=== PATIENT | male | born 1955 | race Caucasian/White ===

== ENCOUNTER 2023-04-24 05:37 | Observation (INO) | payer MEDICARE ==
[2023-04-19 10:20] VITALS: BMI 29.7
[2023-04-19 10:56] LABS: Bilirubin Neg (Negative); Blood, Urine Negative (Negative); Clarity Clear (Clear); Glucose, Urine (Dipstick) Normal (Negative); Ketone, Urine Negative (Negative); Leukocyte 25 (Negative); Nitrite Negative (Negative); Protein, Urine (Dipstick) Negative (Neg-Trace); Urobilinogen Normal mg/dL (Less than 2)
[2023-04-19 11:02] LABS: #Basophils 0.1 10x3/uL (0.0-0.2); #Eosinphils 0.3 10x3/uL (0.0-0.5); #Monocytes 0.7 10x3/uL (0.0-1.1); %Basophils 0.8 % (0.0-2.0); %Eosinophils 3.3 % (0.0-6.0); %Lymphocytes 23.1 % (18.0-47.0); %Monocytes 8.7 % (0.0-10.0); Hemoglobin 14.1 g/dL (13.5-17.5); Mean Corpuscular HGB CONC 33.7 g/dL (32.0-36.0); Mean Corpuscular Hemoglobin 31.8 pg (27.0-33.0); Mean Corpuscular Volume 94.4 fl (81.2-95.1); Mean Platelet Volume 10.8 fl (7.4-10.4); Platelet Count 322 10x3/uL (150-450); RBC Distribution Width 12.4 % (11.5-14.5); Red Blood Cell (RBC) Count 4.44 10x6/uL (4.32-5.72); White Blood Cell (WBC) Count 7.8 10x3/uL (3.5-10.5)
[2023-04-19 11:12] LABS: Prothrombin Time 10.3 sec (9.5-12.1)
[2023-04-19 11:22] LABS: Anion Gap 15 mmol/L (10-20); BUN (Urea Nitrogen) 15 mg/dL (8.4-25.7); Calc. Creatinine Clearance 0 mL/min (70-130); Calcium 9.3 mg/dL (7.8-10.44); Carbon Dioxide 22 mmol/L (23-31); Chloride 108 mmol/L (98-107); Estimated GFR 90; Glucose 84 mg/dL (80-115); Potassium 4.8 mmol/L (3.5-5.1); Sodium 140 mmol/L (136-145)
[2023-04-24] MEDS ORDERED: Bupivacaine PF 0.5% 30 ML VIAL ONE ×2 (06:27→06:43)
[2023-04-24] MEDS ORDERED: Tranexamic Acid 1,000 MG/10 ML VIAL ONE (06:35)
[2023-04-24] MEDS ORDERED: Vancomycin (BATCH) 1.5 GRAM/300 ML BAG ONE (06:35)
[2023-04-24] MEDS ORDERED: Sodium Chloride 0.9% 100 ML ONE ×2 (06:35→06:54)
[2023-04-24] MEDS ORDERED: Midazolam HCl 2 mg/2 ml Vial ONE (06:43)
[2023-04-24] MEDS ORDERED: EPINEPHrine 1 MG/ML AMP ONE (06:43)
[2023-04-24] MEDS ORDERED: Lidocaine 1% (PF) 30 ML VIAL ONE (06:43)
[2023-04-24] MEDS ORDERED: CEFAZOLIN 2 GM VIAL ONE (06:54)
[2023-04-24] MEDS ORDERED: HYDROcodone/Acetaminophen 10/325 mg Tablet PO PRN ×3 (07:18→08:15)
[2023-04-24] MEDS ORDERED: traMADol HCl 50 MG TAB PO PRN ×3 (07:18→08:15)
[2023-04-24] MEDS ORDERED: Zolpidem Tartrate 5 MG TAB PO PRN ×2 (07:18→08:15)
[2023-04-24] MEDS ORDERED: diphenhydrAMINE 25 MG CAP PO PRN (07:18)
[2023-04-24] MEDS ORDERED: fentaNYL 50 mcg/mL 1 mL Vial SLOW IVP PRN ×2 (07:18→08:10)
[2023-04-24] MEDS ORDERED: Ondansetron PF 4 MG/2 ML Vial IVP PRN ×2 (07:18→08:15)
[2023-04-24] MEDS ORDERED: Promethazine HCl 25 MG/ML VIAL IM PRN ×2 (07:18→08:15)
[2023-04-24] MEDS ORDERED: Acetaminophen 325 MG TAB PO PRN (07:18)
[2023-04-24] MEDS ORDERED: GLYCOPYRROLATE/PF 0.2 MG/ML VIAL ONE (07:19)
[2023-04-24] MEDS ORDERED: Lidocaine 1% PF 5 ML VIAL ONE (07:19)
[2023-04-24] MEDS ORDERED: Dexamethasone 20 MG/5 ML VIAL ONE (07:19)
[2023-04-24] MEDS ORDERED: Ondansetron PF 4 MG/2 ML Vial ONE ×2 (07:19)
[2023-04-24] MEDS ORDERED: PROPOFOL 200 MG/20 ML VIAL ONE (07:19)
[2023-04-24] MEDS ORDERED: Tranexamic Acid 1,000 MG in Sodium Chloride 0.9% 100 ML IVPB SCH (07:30)
[2023-04-24] MEDS ORDERED: fentaNYL 50 mcg/mL 1 mL Vial ONE ×4 (07:35→11:46)
[2023-04-24] MEDS ORDERED: HYDROmorphone 2 MG/ML VIAL ONE (07:48)
[2023-04-24] MEDS ORDERED: Ropivacaine 0.2% 550 ML 550 ML NERVE BLCK SCH (08:15)
[2023-04-24] MEDS ORDERED: Meperidine HCl/PF 25 MG/ML VIAL ONE (09:17)
[2023-04-24] MEDS ORDERED: Non-Formulary Medication 1 EACH PO PRN (13:14)
[2023-04-24] MEDS ORDERED: Ondansetron HCl/PF 4 MG/2 ML Vial IVP PRN (13:15)
[2023-04-24] MEDS ORDERED: Promethazine HCl 25 MG/ML VIAL IM/IV PRN (13:15)
[2023-04-24] MEDS ORDERED: Meperidine HCl/PF 25 MG/ML VIAL IV PRN (13:15)
[2023-04-24] MEDS ORDERED: Ketorolac Tromethamine 30 MG/ML VIAL IVP SCH (14:00)
[2023-04-24] MEDS: Aspirin 81 mg Enteric Coated Tablet PO SCH ×2 (14:31→20:43)
[2023-04-24] MEDS: Amlodipine 5 MG TAB PO SCH (14:31)
[2023-04-24] MEDS: Clopidogrel Bisulfate 75 MG TAB PO SCH (14:31)
[2023-04-24] MEDS: Sodium Chloride 0.9% 1,000 ML IV SCH ×2 (14:31→15:24)
[2023-04-24] MEDS: Ferrous Gluconate 324 MG TAB PO SCH ×2 (14:31→20:43)
[2023-04-24] MEDS: Multivitamin W/ Minerals 1 TAB PO SCH (14:32)
[2023-04-24] MEDS: Senokot S 8.6-50 MG TAB PO SCH ×2 (14:32→20:43)
[2023-04-24] MEDS: Ketorolac Tromethamine 30 MG/ML VIAL IVP SCH ×3 (14:32→23:22)
[2023-04-24] MEDS: Losartan 25 MG TAB PO SCH (14:32)
[2023-04-24] MEDS: HYDROcodone/Acetaminophen 10/325 mg Tablet PO PRN (15:24)
[2023-04-24] MEDS: CEFAZOLIN 2 GM in Sodium Chloride 0.9% 100 ML IVPB SCH ×2 (15:24→23:23)
[2023-04-24] MEDS ORDERED: Vancomycin 1.5 GRAM/300 ML BAG 1.5 GM in Premix Bag 1 BAG IVPB SCH (18:00)
[2023-04-24] MEDS ORDERED: Atorvastatin Calcium 40 MG TAB PO SCH (21:00)
[2023-04-24] MEDS ORDERED: Tamsulosin HCl 0.4 MG CAP PO SCH (21:00)
[2023-04-25] MEDS: Sodium Chloride 0.9% 1,000 ML IV SCH (03:15)
[2023-04-25] MEDS: Ketorolac Tromethamine 30 MG/ML VIAL IVP SCH ×2 (05:40→11:51)
[2023-04-25 06:25] LABS: Hemoglobin 11.2 g/dL (14.0-18.0); Mean Corpuscular HGB CONC 33.2 g/dL (32.0-36.0); Mean Corpuscular Hemoglobin 31.5 pg (27.0-31.0); Mean Corpuscular Volume 94.9 fl (78.0-98.0); Mean Platelet Volume 10.5 fL (7.4-10.4); Platelet Count 207 10x3/uL (130-400); RBC Distribution Width 12.2 % (11.5-14.5); Red Blood Cell (RBC) Count 3.55 mill/uL (4.70-6.10); White Blood Cell (WBC) Count 9.5 10x3/uL (4.8-10.8)
[2023-04-25] MEDS: Losartan 25 MG TAB PO SCH (09:23)
[2023-04-25] MEDS: Clopidogrel Bisulfate 75 MG TAB PO SCH (09:23)
[2023-04-25] MEDS: Ferrous Gluconate 324 MG TAB PO SCH (09:24)
[2023-04-25] MEDS: Amlodipine 5 MG TAB PO SCH (09:24)
[2023-04-25] MEDS: Senokot S 8.6-50 MG TAB PO SCH (09:24)
[2023-04-25] MEDS: Aspirin 81 mg Enteric Coated Tablet PO SCH (09:24)
[2023-04-25] MEDS: Multivitamin W/ Minerals 1 TAB PO SCH (09:24)
[2023-04-25 12:02] VITALS: BP 150/75; TEMP 99.3
[2023-04-25] MEDS: HYDROcodone/Acetaminophen 10/325 mg Tablet PO PRN (14:30)
== END 2023-04-25 14:35 | disposition home or self-care (01) ==
LOC: SDC 05:37 → SURG A 14:06
PROVIDERS: ADMIT Orthopaedic Surgery; ATTEND Orthopaedic Surgery
PROC: 0SRD06Z Replacement of Left Knee Joint with Oxidized Zirconium on Polyethylene Synthetic Substitute, Open Approach (ICD-10-PCS; principal; 2023-04-24)
DX: M17.12 Unilateral primary osteoarthritis, left knee (principal); I10 Essential (primary) hypertension; E78.5 Hyperlipidemia, unspecified; Z86.73 Personal history of transient ischemic attack (TIA), and cerebral infarction without residual deficits; Z79.899 Other long term (current) drug therapy
CPT/HCPCS: 27447; 80048; 81003; 85025; 85027; 85610; 86850; 86900; 86901; 87081; 97110; 97116 ×2; 97530 ×2; A4306; C1776; J3010; J3370; J3490; 36415; J0171; J1100; J1170; J1885; J2001; J2175; J2250; J2405; J2704; J2795; J7050; S0020